=== PATIENT | male | born 1960 | race Caucasian/White ===

== ENCOUNTER → 2017-10-30 | Outpatient (CLI) | payer OTHER | LOC: FIMAGING 07:32 | PROVIDERS: ATTEND Radiology Diagnostic Radiology | DX: I83.891 Varicose veins of right lower extremity with other complications (principal); I80.01 Phlebitis and thrombophlebitis of superficial vessels of right lower extremity; Z79.01 Long term (current) use of anticoagulants ==

== ENCOUNTER → 2017-11-12 | Outpatient (CLI) | payer OTHER | LOC: FIMAGING 11:01 | PROVIDERS: ATTEND Radiology Diagnostic Radiology | DX: I82.811 Embolism and thrombosis of superficial veins of right lower extremity (principal) ==